=== PATIENT | female | born 1980 | race Caucasian/White ===

== ENCOUNTER 2022-10-06 17:58 | Emergency (ER) | payer OTHER ==
[~2022-10-06] VITALS: Ht 167.6 cm; Wt 73.0 kg
[2022-10-06] MEDS ORDERED: HYDROCODONE/ACETAMINOPHEN 5/325MG TABLET PO ONE (18:45)
[2022-10-06 19:15] VITALS: BP 136/78
[2022-10-06] MEDS ORDERED: KETOROLAC 60MG/2ML VIAL IM ONE (19:15)
[2022-10-06] MEDS ORDERED: HYDR-4001 MT (19:44)
== END 2022-10-06 22:01 | disposition home or self-care (01) ==
LOC: ER 17:58
DX: S52.591A Other fractures of lower end of right radius, initial encounter for closed fracture (principal); Y08.89XA Assault by other specified means, initial encounter; Y93.89 Activity, other specified; Y92.59 Other trade areas as the place of occurrence of the external cause
CPT/HCPCS: 29125; 73110; 96372; 99283; J1885; A4565